=== PATIENT | female | born 1995 | race African-American/Black ===

== ENCOUNTER 2017-09-27 20:45 | Emergency (ER) | payer MEDICAID, OTHER ==
[~2017-09-27] VITALS: Ht 170.2 cm; Wt 57.0 kg
[2017-09-27 21:21] VITALS: BP 100/52
== END 2017-09-28 00:51 | disposition left against medical advice (07) ==
LOC: ER 22:53
DX: M25.511 Pain in right shoulder (principal); M19.90 Unspecified osteoarthritis, unspecified site; Z53.21 Procedure and treatment not carried out due to patient leaving prior to being seen by health care provider
CPT/HCPCS: 81025